=== PATIENT | female | born 1995 | race Caucasian/White ===

== ENCOUNTER 2023-12-17 09:20 | Emergency (ER) | payer BC, SELFPAY ==
[2023-12-17 09:24] VITALS: BP 118/77
--- NOTE | 2023-12-17 09:57 | ED.GENMED ---
History of Present Illness
General
Chief Complaint: Back Pain
Source: patient and spouse
Exam Limitations: none
Time Seen by Provider: 12/17/23 09:29
Nursing documentation reviewed up to this point in time: agreed with
Travel History
Have you had any contact with someone who has COVID-19?: No
Do you have any symptoms of coronavirus? Fever > 100 degrees, chills, cough, shortness of breath, sore throat, loss of taste or smell, muscle aches, or headache?: No
History of Present Illness
History of Present Illness:
28-year-old female here with 6 months ago presenting to the emergency department today with concerns of right-sided mid lower back discomfort started overnight last night now made worse with movement and different positions. Claims that
she has been holding her child with the right arm mainly. Denies any change in bowel or bladder function denies any fevers. Denies any shortness of breath or chest pain. Denies any history of blood clots leg swelling recent trauma surgery or
immobilization
Past History
Past History
ED Past Medical History: Other (Irregular periods)
Social History
Tobacco: Non-smoker
Alcohol: Occasional
Review of Systems
Review of Systems
Allergies reviewed?: Yes
All Other Systems: ROS reviewed and negative except as documented in HPI and ROS
Phy Exam
Physical Exam
Physical Exam:
GENERAL: Alert , in no apparent distress
EYE: pupils equal and reactive
NECK: Supple, no significant adenopathy.
ENT: o/p clr, mmm.
CARDIAC: Regular rate and rhythm .
LUNGS: Clear breath sounds bilaterally, no acute respiratory distress, no wheezes/rales/rhonchi
ABDOMEN: Soft, without focal tenderness, no r/g, no cvat
NEUROLOGICAL: Alert and oriented, no focal neuro deficits
SKIN: Warm and dry, skin intact.
MUSCULOSKELETAL: Reproducible back pain to the right lower thoracic region at the paraspinal muscles no midline pain. No edema, well perfused.
PSYCH: Normal and appropriate interaction.
Course
Orders/Labs/Results
Orders:
Orders
12/17/23 09:52
Acetaminophen [Tylenol] 650 mg PO NOW STA
Ibuprofen [Motrin] 600 mg PO NOW STA
Thoracic Spine 3 Views CR [CR Thoracic Spine 3 Views] Urgent
Comment:
Reason For Exam: back pain
Vital Signs
Initial and Last Documented VS:
Initial Vital Signs
Temp Pulse Resp BP Pulse Ox
98.6 F 76 16 118/77 99
12/17/23 09:24 12/17/23 09:24 12/17/23 09:24 12/17/23 09:24 12/17/23 09:24
Last Documented Vital Signs
Temp Pulse Resp BP Pulse Ox
98.6 F 76 16 118/77 99
12/17/23 09:24 12/17/23 09:24 12/17/23 09:24 12/17/23 09:24 12/17/23 09:24
MDM/Problems Addressed
MDM/Problems Addressed:
28-year-old female presenting to the emergency department today with concerns of right mid to lower back discomfort no midline pain. Made worse with movement and positions. On arrival vital signs are normal no neurologic no risk factors for PE or
referred symptoms concerning the patient's symptoms are reproducible to palpation as well as with move this is likely musculoskeletal. X-ray was performed otherwise was given medications to help with symptoms. X-ray without acute abnormalities.
Patient generally well-appearing stable for discharge likely mechanical back pain. Return precautions given.
*Critical Care Note
Total Time (30-74mins, 75-104mins- exclusive of procedures): Not Applicable
ED Attending Note
-
Portions of this chart may have been created with voice recognition software.� Occasional wrong word or��sound alike� substitutions may have occurred due to the inherent limitations of voice recognition software.
Discharge Plan
Departure
Patient Disposition: Home (Routine Discharge)
Date of Disposition: 12/17/23
Time of Disposition: 11:31
Patient with high blood pressure during this ER visit?: No
Condition: Good
Covid-19: Not Applicable
Discharge Problem:
Low back pain
Instructions: Low Back Pain (DC)
Prescriptions:
No Action
PreNata 29 mg iron- 1 mg Tablet,Chewable
1 tab PO DAILY
iron
1 tab PO DAILY
sennosides-docusate sodium [Stool Softener-Stimulant Laxat] 8.6-50 mg Tablet
1 tab PO DAILYPRN PRN (Reason: constipation) Qty: 0 0RF
oxycodone-acetaminophen 5-325 mg Tablet
1 tab PO Q4HPRN PRN (Reason: moderate pain) Qty: 15 0RF
ibuprofen 600 mg Tablet
600 mg PO Q6HPRN PRN (Reason: cramps) Qty: 45 0RF
acetaminophen 325 mg Tablet
650 mg PO Q4HPRN PRN (Reason: mild pain) Qty: 0 0RF
Referrals:
Sandra Child CRNP [Family Provider] -
Activity Restrictions/Additional Instructions:
You came to the emergency department today with concerns of back discomfort. No signs of emergent pathology x-ray without emergent findings. Please take Motrin and Tylenol to help with symptoms. Return to the emergency department for any
worsening, new or concerning symptoms.
Interventions
Interventions:
*Risk Screen - Suicide Last Done: 12/17/23 09:26
*General Assessment Last Done: 12/17/23 09:26
*Neglect/Abuse Screening Last Done: 12/17/23 09:26
Discharge Date and Time
Print Language: GERMAN
[2023-12-17] MEDS: MOTRIN 600 MG PO (10:11)
[2023-12-17] MEDS: TYLENOL 650 MG PO (10:11)
[2023-12-17 11:30] VITALS: BP 120/72
== END 2023-12-17 11:32 | disposition home or self-care (01) ==
LOC: EMR 09:20
PROVIDERS: EMERGENCY PHYSICIAN Emergency Medicine; FAMILY PHYSICIAN Nurse Practitioner Acute Care
DX: M54.50 Low back pain, unspecified (principal)
CPT/HCPCS: 99283; 72072

== ENCOUNTER 2024-04-30 22:04 | Emergency (ER) | payer BC, SELFPAY ==
[2024-04-30 22:23] VITALS: BP 115/79
--- NOTE | 2024-05-01 01:32 | ED.GENMED ---
History of Present Illness
General
Chief Complaint: Musculo-Skeletal Complaint
Source: patient
Exam Limitations: none
Time Seen by Provider: 05/01/24 01:25
Nursing documentation reviewed up to this point in time: agreed with
History of Present Illness
History of Present Illness:
This is a 29-year-old female with no significant past medical history who complains of left ankle pain after twisting this this afternoon after being intermittently bumped by her dogs. She complains of pain anterior left ankle, worse with
ambulation and difficulty ambulating. She took ibuprofen around 3 PM today. No history of previous ankle injuries. She denies weakness nor numbness, no knee pain nor leg pain. No back pain.
She denies risk of .
Past History
Past History
ED Past Medical History: Other (Irregular periods)
ED Past Surgical History:
Social History
Tobacco: Non-smoker
Alcohol: Occasional
Personal:
Living: with family
Employment: Employed
Family History
Family History: Other (Noncontributory)
Phy Exam
Physical Exam
Physical Exam:
GENERAL: 29-year-old woman appears her stated age, bright and alert, pleasant, appears in no acute distress. is accompanying.
EYE: anicteric
NECK: Supple, nontender
ENT: oral mucosa is moist.
LUNGS: no acute respiratory distress
ABDOMEN: Soft, nondistended, without focal tenderness
NEUROLOGICAL: Alert and oriented x3, no focal neuro deficits.
SKIN: Warm and dry, normal color, skin intact. No rash.
MUSCULOSKELETAL: No C/C/E. peripheral pulses are full and equal b/l. Left ankle with mild to moderate tenderness anterior aspect with very mild soft tissue swelling and minimal ecchymosis anterior distal ankle, proximal dorsal foot. Mild increased
pain with dorsiflexion, plantarflexion. No tenderness to the lateral nor medial malleolus. No joint effusion. Peripheral pulses are full and equal. Sensation and strength intact.
PSYCH: Normal and appropriate interaction.
Course
Orders/Labs/Results
Orders:
Orders
04/30/24 22:27
Ankle, left 3 view CR [CR Ankle - Left Min 3 Views ] Urgent
Comment:
Reason For Exam: injury
05/01/24 01:30
Louis Wrap Left-Treatment ONCE
Air Splint Left-Treatment ONCE
Ibuprofen [Motrin] 800 mg PO NOW STA
Vital Signs
Initial and Last Documented VS:
Initial Vital Signs
Temp Pulse Resp BP Pulse Ox
98.1 F 92 20 115/79 98
04/30/24 22:23 04/30/24 22:23 04/30/24 22:23 04/30/24 22:23 04/30/24 22:23
Last Documented Vital Signs
Temp Pulse Resp BP Pulse Ox
98.1 F 92 20 115/79 98
04/30/24 22:23 04/30/24 22:23 04/30/24 22:23 04/30/24 22:23 04/30/24 22:23
MDM/Problems Addressed
Differential Diagnosis Includes:
Patient presents with left ankle injury, pain, swelling and ecchymosis anterior aspect of the ankle. No gross deformity.
Concern for fracture versus sprain/strain.
X-ray, preliminarily read by myself shows no evidence of fracture. No dislocation.
I suspect acute ankle sprain.
Will place an Louis wrap, air splint and provide crutches for nonweightbearing.
Will continue ibuprofen for pain.
Supportive measures discussed including ice, elevation.
Follow-up with PCP and patient will be referred to orthopedics as well.
*Radiology
Radiology exam reviewed: preliminary read by ED provider (Left ankle x-rays negative for fracture.)
*Pulse Oximetry
Patient hypoxic: no
*Critical Care Note
Total Time (30-74mins, 75-104mins- exclusive of procedures): Not Applicable
ED Attending Note
-
Portions of this chart may have been created with voice recognition software.� Occasional wrong word or��sound alike� substitutions may have occurred due to the inherent limitations of voice recognition software.
Discharge Plan
Departure
Patient Disposition: Home (Routine Discharge)
Date of Disposition: 05/01/24
Time of Disposition: 01:39
Patient with high blood pressure during this ER visit?: No
Condition: Good
Discharge Problem:
Left ankle sprain
Instructions: How to Use Crutches, Ankle Sprain ED
Prescriptions:
No Action
PreNata 29 mg iron- 1 mg Tablet,Chewable
1 tab PO DAILY
iron
1 tab PO DAILY
sennosides-docusate sodium [Stool Softener-Stimulant Laxat] 8.6-50 mg Tablet
1 tab PO DAILYPRN PRN (Reason: constipation) Qty: 0 0RF
oxycodone-acetaminophen 5-325 mg Tablet
1 tab PO Q4HPRN PRN (Reason: moderate pain) Qty: 15 0RF
ibuprofen 600 mg Tablet
600 mg PO Q6HPRN PRN (Reason: cramps) Qty: 45 0RF
acetaminophen 325 mg Tablet
650 mg PO Q4HPRN PRN (Reason: mild pain) Qty: 0 0RF
Referrals:
John Swift MD [Active] - Call in 1-3 days for appt
NONE,* [Family Provider] -
Interventions
Interventions:
*Risk Screen - Suicide Last Done: 04/30/24 22:23
*General Assessment Last Done: 04/30/24 22:23
*Neglect/Abuse Screening Last Done: 04/30/24 22:23
ED- Fall Risk Assessment Last Done: 04/30/24 22:23
*ED COVID-19 Vaccine History Last Done: 04/30/24 22:23
ED-Musculoskeletal Assessment Last Done: 05/01/24 00:57
Discharge Date and Time
Print Language: ALGERIAN
[2024-05-01] MEDS: MOTRIN 800 MG PO (02:08)
== END 2024-05-01 07:47 | disposition home or self-care (01) ==
LOC: EMR 22:04
PROVIDERS: EMERGENCY PHYSICIAN Emergency Medicine
DX: S93.402A Sprain of unspecified ligament of left ankle, initial encounter (principal); X50.1XXA Overexertion from prolonged static or awkward postures, initial encounter
CPT/HCPCS: 99283; 73610